=== PATIENT | female | born 1985 | race Caucasian/White ===

== ENCOUNTER 2017-04-10 18:45 | Emergency (ER) | payer OTHER ==
--- NOTE | 2017-04-10 19:54 | CT ---
EXAMINATION TYPE: CT brain wo con DATE OF EXAM: 04/10/2017 COMPARISON: NONE HISTORY: Laceration to left side of forehead after fall injury CT DLP: 896.3 mGycm. Automated Exposure Control for Dose Reduction was Utilized. TECHNIQUE: CT scan of the head is performed without contrast. FINDINGS: Ventricles have normal size. There is no mass effect or midline shift. There is no sign o f intracranial hemorrhage. The calvarium is intact. There is left frontal scalp soft tissue swelling. CONCLUSION: Scalp soft tissue swelling. No acute intracranial abnormality. Normal CT scan of the brain.
--- NOTE | 2017-04-10 19:57 | ED ---
Fall HPI - General Chief Complaint: Fall Stated Complaint: head injury Time Seen by Provider: 04/10/17 19:22 Source: patient, RN notes reviewed Mode of arrival: ambulatory Limitations: no limitations - History of Present Illness Initial Comments: 32-year-old female presents emergency Department chief complaint head injury. Patient states she saw her porch and she tripped falling forward striking her head on the hand rail. There was no loss conscious. Patient states immediately swelled up she has swelling above her left eye. Denies any visual changes. She does complain of a headache no medications taken prior arrival. Denies neck pain or any other extremity injury. She is concerned she did strike her head and she has a headache. She does not take any blood thinners. - Related Data Home Medications Medication Instructions Recorded Confirmed No Known Home Medications [No 04/10/17 04/10/17 Known Home Medications] Allergies Allergy/AdvReac Type Severity Reaction Status Date / Time Penicillins Allergy Rash/Hives Verified 04/10/17 19:19 Review of Systems ROS Statement: Those systems with pertinent positive or pertinent negative responses have been documented in the HPI. ROS Other: All systems not noted in ROS Statement are negative. Past Medical History Past Medical History: No Reported History History of Any Multi-Drug Resistant Organisms: None Reported Past Surgical History: Orthopedic Surgery Additional Past Surgical History / Comment(s): lt elbow Past Psychological History: No Psychological Hx Reported Smoking Status: Current some day smoker Past Alcohol Use History: Occasional Past Drug Use History: None Reported General Exam Limitations: no limitations General appearance: alert, in no apparent distress Head exam: Present: normocephalic. Absent: atraumatic, normal inspection ( hematoma noted in the left forehead region) Eye exam: Present: normal appearance, PERRL, EOMI. Absent: scleral icterus, conjunctival injection, periorbital swelling ENT exam: Present: normal exam, normal oropharynx, mucous membranes moist, TM's normal bilaterally, normal external ear exam Neck exam: Present: normal inspection, full ROM. Absent: tenderness, meningismus, lymphadenopathy Respiratory exam: Present: normal lung sounds bilaterally. Absent: respiratory distress, wheezes, rales, rhonchi, stridor Cardiovascular Exam: Present: regular rate, normal rhythm, normal heart sounds. Absent: systolic murmur, diastolic murmur, rubs, gallop, clicks Neurological exam: Present: alert, oriented X3, CN II-XII intact, reflexes normal, other (Finger to nose intact bilaterally without or shooting.). Absent : motor sensory deficit Skin exam: Present: warm, dry, intact, normal color. Absent: rash Course Vital Signs 04/10/17 18:53 Temperature 97.9 F Pulse Rate 78 Respiratory 20 Rate Blood Pressure 124/62 O2 Sat by Pulse 99 Oximetry Medical Decision Making - Medical Decision Making 32-year-old female presented for fall, head injury. CT reviewed there is noted soft tissue swelling consistent with her hematoma on physical exam. Otherwise CT is unremarkable. Patient does complain of headache has no other associated symptoms. Patient we discharged at this time return parameters were discussed. Disposition Clinical Impression: Fall, Traumatic hematoma of forehead, Head injury Disposition: HOME SELF-CARE Condition: Stable Instructions: Head Injury (ED) Additional Instructions: Please return to the Emergency Department if symptoms worsen or any other concerns. Referrals: None,Stated [Primary Care Provider] - 1-2 days Time of Disposition: 20:02
[2017-04-10 20:17] VITALS: BP 112/68; PULSE 68; RESP 18; TEMP 98.2
== END 2017-04-10 20:10 | disposition home or self-care (01) ==
LOC: EC 18:45
DX: S00.83XA Contusion of other part of head, initial encounter (principal); F17.200 Nicotine dependence, unspecified, uncomplicated; Z88.0 Allergy status to penicillin; W01.198A Fall on same level from slipping, tripping and stumbling with subsequent striking against other object, initial encounter; Y92.009 Unspecified place in unspecified non-institutional (private) residence as the place of occurrence of the external cause
CPT/HCPCS: 70450; 99283